=== PATIENT | female | born 1975 | race African-American/Black ===

== ENCOUNTER 2017-10-19 17:39 | Emergency (ER) | payer OTHER ==
[~2017-10-19] VITALS: Ht 170.2 cm; Wt 72.6 kg
[2017-10-19 18:05] VITALS: BP 137/78
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
[2017-10-19] MEDS ORDERED: CYCL5TAB PO (18:28)
[2017-10-19] MEDS ORDERED: CYCL-331 PO (18:28)
[2017-10-19] MEDS ORDERED: OXYC-328 PO (18:28)
[2017-10-19] MEDS: oxyCODONE/APAP 10/325 1 TAB TABLET PO ONE (18:35)
[2017-10-19] MEDS: ORPHENADRINE CITRATE 60 MG/2 ML VIAL. IM ONE (18:36)
== END 2017-10-19 19:00 | disposition home or self-care (01) ==
LOC: ER 17:39
DX: S20.211A Contusion of right front wall of thorax, initial encounter (principal); F17.200 Nicotine dependence, unspecified, uncomplicated; Z88.0 Allergy status to penicillin; Z88.6 Allergy status to analgesic agent; V49.9XXA Car occupant (driver) (passenger) injured in unspecified traffic accident, initial encounter; Y93.89 Activity, other specified; Y99.8 Other external cause status; Y92.488 Other paved roadways as the place of occurrence of the external cause
CPT/HCPCS: 96372; 99283; J2360